=== PATIENT | male | born 1960 | race Caucasian/White ===

== ENCOUNTER 2016-08-18 09:58 | Outpatient (CLI) ==
[2012-12-16 06:25] VITALS: TEMP 96.9
[2016-02-14 09:37] VITALS: BMI 22.7
== END 2016-08-18 09:59 | disposition home or self-care (01) ==
LOC: AMBL 09:58
PROVIDERS: ATTEND Emergency Medicine
DX: S79.911A Unspecified injury of right hip, initial encounter (principal); W06.XXXA Fall from bed, initial encounter

== ENCOUNTER 2016-10-17 15:42 | Outpatient (CLI) ==
[2012-12-16 06:25] VITALS: TEMP 96.9
[2016-02-14 09:37] VITALS: BMI 22.7
[2016-10-18 05:48] LABS: BASOPHILS % (AUTO) 0.4 % (0.0-3.0); EOSINOPHILS # (AUTO) 0.2 K/ul (0.0-0.7); EOSINOPHILS % (AUTO) 2.9 % (0.0-7.0); HEMATOCRIT 39.5 % (42.0-52.0); HEMOGLOBIN 13.1 g/dl (14.0-18.0); IMMATURE GRANULOCYTE % (AUTO) 0.4 % (0.0-5.0); LYMPHOCYTES # (AUTO) 1.9 K/uL (0.60-3.4); LYMPHOCYTES % (AUTO) 26.2 (10.0-50.0); MEAN CORPUSCULAR HGB CONC 33.2 (31.8-35.4); MEAN CORPUSCULAR VOLUME 96.3 fl (80.0-94.0); MONOCYTES # (AUTO) 0.8 K/uL (0.4-2.0); MONOCYTES % (AUTO) 10.9 (0-10); NEUTROPHILS # (AUTO) 4.3 K/ul (2.0-6.9); NEUTROPHILS % (AUTO) 59.2; PLATELET COUNT 253 10^3/uL (140-440); WHITE BLOOD COUNT 7.22 K/ul (4.2-10.2)
[2016-10-18 06:07] LABS: ALBUMIN 3.9 g/dL (3.4-5.0); ALBUMIN/GLOBULIN RATIO 1.26; ANION GAP 13.8; BILIRUBIN,TOTAL 0.38 mg/dL (0.00-1.20); BUN/CREATININE RATIO 8.98; CALCIUM 9.1 mg/dL (8.2-10.2); CHOL/HDL RATIO 3.2 (4.5-6.4); CREATININE 0.89 mg/dL (0.60-1.10); POTASSIUM 3.8 mmol/L (3.5-5.1)
[2016-10-22 09:04] LABS: HIV ANTIBODIES QUALITATIVE NON REACTIVE (Nonreactive)
== END 2016-10-17 15:43 | disposition home or self-care (01) ==
LOC: LAB 15:42
PROVIDERS: ATTEND Nurse Practitioner Family
DX: S72.111A Displaced fracture of greater trochanter of right femur, initial encounter for closed fracture (principal); J44.9 Chronic obstructive pulmonary disease, unspecified; M51.36 Other intervertebral disc degeneration, lumbar region; E78.5 Hyperlipidemia, unspecified; I10 Essential (primary) hypertension; M15.9 Polyosteoarthritis, unspecified; F41.1 Generalized anxiety disorder; Z11.4 Encounter for screening for human immunodeficiency virus [HIV]; Z11.59 Encounter for screening for other viral diseases
CPT/HCPCS: 36415; 80053; 80061; 85025; 86701; 87522

== ENCOUNTER 2017-11-04 12:30 | Outpatient (CLI) | payer OTHER ==
[2012-12-16 06:25] VITALS: TEMP 96.9
[2016-02-14 09:37] VITALS: BMI 22.7
== END 2017-11-04 12:31 | disposition home or self-care (01) ==
LOC: LAB 12:30
PROVIDERS: ATTEND Emergency Medicine
DX: E78.5 Hyperlipidemia, unspecified (principal); I10 Essential (primary) hypertension; Z12.5 Encounter for screening for malignant neoplasm of prostate
CPT/HCPCS: 36415; 80053; 80061; 84443; 85025

== ENCOUNTER 2018-01-07 07:57 | Outpatient (CLI) ==
[2012-12-16 06:25] VITALS: TEMP 96.9
[2016-02-14 09:37] VITALS: BMI 22.7
--- NOTE | 2018-01-07 11:32 | US ---
EXAM: Renal ultrasound HISTORY: Cyst of kidney, acquired COMPARISON: 06/20/2014 TECHNIQUE: Renal ultrasound was performed FINDINGS: Right kidney measures 4.6 x 4.6 x 10.0 cm. Left kidney measures 5.9 x 4.4 x 10.9 cm. Bassam al cortical echogenicity is normal. No hydronephrosis or renal calculus large enough to cause acoust ic shadowing. No renal cyst or mass identified. Bladder only mildly distended and poorly evaluated IMPRESSION: Sonographically normal kidneys. The lesion demonstrated on prior CT is not visualized. Consider follow-up CT.
== END 2018-01-07 07:58 | disposition home or self-care (01) ==
LOC: RAD 07:57
PROVIDERS: ATTEND Emergency Medicine
DX: N28.1 Cyst of kidney, acquired (principal)

== ENCOUNTER 2018-03-02 15:18 | Outpatient (CLI) ==
[2012-12-16 06:25] VITALS: TEMP 96.9
[2016-02-14 09:37] VITALS: BMI 22.7
== END 2018-03-02 15:19 | disposition home or self-care (01) ==
LOC: CAR 15:18
PROVIDERS: ATTEND Family Medicine
DX: I10 Essential (primary) hypertension (principal)
CPT/HCPCS: 93005; 93010

== ENCOUNTER 2018-03-17 07:50 | Outpatient (CLI) ==
[2012-12-16 06:25] VITALS: TEMP 96.9
[2016-02-14 09:37] VITALS: BMI 22.7
--- NOTE | 2018-03-18 13:09 | ECHO2D ---
Date of Exam: 03/17/18 Ordering Physician: [facility] [[email or web address]] Room #: OP Reason for Echo: SHORT OF BREATH M-Mode Normal Adult Results LV Dimensions Normal Adult Results AoV Opening excursions >1.6 >1.6 LVEDD-base- 3.5-5.8 6.1 Ao root dimensions 2.0-3.7 3.6 LVESD-base- 3.1-4.6 L. Atrium dimensions 1.9-3.8 4.8 Post. Wall thickness 0.8-1.1 1.2 IV septum (thickness) 0.7-1.2 1.3 Post. Wall excursion 0.72-1.3 NORMAL Septal motion 0.2 Systolic motion R. Ventricular cavity 1.5-2.0 NORMAL LVEF 60% 40 TO 45% Paradoxical septal wall motion NORMAL 2-D : HYPOKINETIC SEPTUM, VALVES--NORMAL, NO EFFUSION, NO THROMBUS, ENLARGED LEFT ATRIAL AND LEFT VENTRICLE CAVITIES M-MODE: MV: NORMAL AV: NORMAL TV: NORMAL PV: CHAMBER SIZE: ENLARGED LEFT VENTRICLE AND LEFT ATRIAL CAVITIES WALL MOTION: HYPOKINETIC SEPTUM PERICARDIUM: NORMAL INTERPRETATION: 1. LEFT VENTRICULAR HYPERTROPHY 2. ENLARGED LEFT ATRIAL AND LEFT VENTRICLE CAVITIES 3. HYPOKINETIC SEPTUM LEFT VENTRICULAR EJECTION FRACTION 40 TO 45% MTDD
== END 2018-03-17 07:51 | disposition home or self-care (01) ==
LOC: CAR 07:50
PROVIDERS: ATTEND Nurse Practitioner Family
DX: R06.02 Shortness of breath (principal); I10 Essential (primary) hypertension; E78.5 Hyperlipidemia, unspecified

== ENCOUNTER 2018-10-02 14:50 | Outpatient (CLI) ==
[2012-12-16 06:25] VITALS: TEMP 96.9
[2016-02-14 09:37] VITALS: BMI 22.7
== END 2018-10-02 14:51 | disposition home or self-care (01) ==
LOC: RHC-LAB 14:50
PROVIDERS: ATTEND Nurse Practitioner Family
DX: Z00.00 Encounter for general adult medical examination without abnormal findings (principal); Z12.5 Encounter for screening for malignant neoplasm of prostate
CPT/HCPCS: 36415; 80053; 80061; 84443; 85025

== ENCOUNTER 2018-12-16 20:28 | Observation (INO) ==
--- NOTE | 2018-12-16 21:40 | CT ---
EXAM: CT scan brain without contrast HISTORY: Fall COMPARISON: CT scan brain 02/02/2016 FINDINGS: Contiguous axial images obtained from the skull base to the convexities without contrast u tilizing five mm collimation. Sagittal and coronal reconstructions were imaged and reviewed. The ve ntricles and CSF spaces are prominent compatible with age appropriate atrophy. There is periventricu lar hypodensity noted compatible with chronic microvascular disease. The visualized paranasal sinuse s and mastoid air cells are clear. The calvarium is intact.. Stable remote fractures are seen invol ving the nasal bones and left zygomatic arch. IMPRESSION: No acute intracranial findings
--- NOTE | 2018-12-16 21:44 | CT ---
EXAM: CT of the cervical spine without contrast. HISTORY: Trauma. PROCEDURE: Contiguous axial CT images of the cervical spine with coronal and sagittal reformats. FINDINGS: Comparison made with CT cervical spine of 02/02/2016. There is normal alignment of the cer vical vertebral bodies and facets. The cervical vertebral body heights are maintained. No evidence of fracture. There is multilevel disc space narrowing. There are posterior osteophytes at multiple levels of the cervical spine. There is multilevel facet arthropathy. The C1-2 relationship is maint ained. No prevertebral soft tissue abnormality. Impression: No evidence of fracture. Normal alignment of the cervical spine with degenerative changes as described.
--- NOTE | 2018-12-16 21:56 | ED.PDOC ---
General ED Provider: Dr. GORGE ALVAREZ-ER Chief Complaint: Head Laceration Stated Complaint: he fell and he is intoxicated Time Seen by Physician: 20:30 Mode of Arrival: Ambulance Information Source: Patient, EMT Exam Limitations: No limitations Primary Care Provider: AMY HAAS Nursing and Triage Documentation Reviewed and Agree: Yes Does patient meet sepsis criteria?: No System Inflammatory Response Syndrome: Not Applicable Sepsis Protocol: For patient's 13 years and over: Temp is 96.8 and below OR 101 and greater Pulse >90 BPM Resp >20/minute Acutely Altered Mental Status Are patient's symptoms suggestive of a new infection, such as: -Pneumonia -Skin, Soft Tissue -Endocarditis -UTI -Bone, Joint Infection -Implantable Device -Acute Abdominal Infection -Wound Infection -Meningitis -Blood Stream Catheter Infection -Unknown Trauma/Injury Complaint Exam - Head Injury Complaint/Exam Location of Pain: Reports: Scalp Mechanism of Injury: Reports: Trauma Onset/Duration: unknown Symptoms Are: Still present Initial Severity: Mild Current Severity: None Aggravating: Reports: None Alleviating: Reports: None Associated Signs and Symptoms: Reports: Confusion Loss of Consciousness: Unknown SDH Risk Factors: Present: None Cervical Spine Injury Risk Factors: Present: None Related Surgical History: Reports: None Head Injury Findings: Present: Normal findings Focal Weakness: Present: None Focal Sensory Loss: Present: None Gait: Abnormal Gag Reflex Present: Yes Babinski Sign: Negative Right, Negative Left Heel to Toe Normal: Yes Nexus Low Risk Criteria: No post-midline CS tender Differential Diagnoses: Trauma, Other Review of Systems - Review Of Systems Constitutional: Reports: No symptoms Eyes: Reports: No symptoms Ears, Nose, Mouth, Throat: Reports: No symptoms Respiratory: Reports: No symptoms Cardiac: Reports: No symptoms GI: Reports: No symptoms : Reports: No symptoms Musculoskeletal: Reports: No symptoms Skin: Reports: No symptoms Neurological: Reports: No symptoms Endocrine: Reports: No symptoms Hematologic/Lymphatic: Reports: No symptoms All Other Systems: Reviewed and Negative Past Medical History - Past Medical History Previously Healthy: No Endocrine: Reports: DM 2, Hypothyroid Cardiovascular: Reports: [place], Hypertension Respiratory: Reports: COPD, Asthma Hematological: Reports: Anemia Gastrointestinal: Reports: None Genitourinary: Reports: Kidney stones Neuro/Psych: Reports: Migraine Musculoskeletal: Reports: Arthritis, Back Pain, Joint Pain Cancer: Reports: None Other Pertinent Past Medical History: Alcoholism - Surgical History General Surgical History: Reports: Unknown - Family History Family History: Reports: Unknown - Social History Smoking Status: Current some day smoker Hx Substance Use: Yes (Marjuanna and has not done any in a couple weeks) Alcohol Screening: Heavy - Immunizations Tetanus Shot up to Date: Yes Physical Exam - Physical Exam Appearance: Well-appearing Pain Distress: Mild Eyes: PAVAN, EOMI, Conjunctiva clear ENT: Ears normal, Nose normal, Oropharynx normal Neck: Supple Respiratory: Airway patent, Breath sounds clear, Breath sounds equal, Respirations nonlabored Cardiovascular: RRR, Pulses normal, No rub, No murmur GI/: Soft, Nontender, No masses, Bowel sounds normal, No Organomegaly Musculoskeletal: Normal strength, ROM intact, No edema, No calf tenderness Skin: Warm, Dry, Normal color Neurological: Sensation intact, Motor intact, Reflexes intact, Cranial nerves intact, Alert, Disoriented Psychiatric: Affect appropriate, Mood appropriate Interpretation - Radiology Interpretation Radiology Interpretation By: Radiologist Radiology Results: Negative Exam Interpreted: CT Scan Critical Care Note - Critical Care Note Total Time (mins): 0 Course - Course Hematology/Chemistry: 12/16/18 21:01 12/16/18 21:01 Orders, Labs, Meds: Lab Review 12/16/18 12/16/18 21:01 21:01 WBC 10.84 H RBC 4.17 L Hgb 13.5 L Hct 39.7 L MCV 95.2 H MCH 32.4 H MCHC 34.0 RDW Coeff of Florinda 12.3 Plt Count 316 Immature Gran % (Auto) 0.3 Neut % (Auto) 71.1 Lymph % (Auto) 21.9 Kern % (Auto) 5.4 Eos % (Auto) 0.8 Baso % (Auto) 0.5 Immature Gran # (Auto) 0.0 Neut # (Auto) 7.7 H Lymph # (Auto) 2.4 Kern # (Auto) 0.6 Eos # (Auto) 0.1 Baso # (Auto) 0.1 Sodium 144.9 Potassium 3.36 L Chloride 105.0 Carbon Dioxide 25.5 Anion Gap 17.76 BUN 3.6 L Creatinine 0.77 Estimated GFR (MDRD) 104.00 BUN/Creatinine Ratio 4.67 Glucose 127.1 H Calcium 8.69 Total Bilirubin 0.24 AST 29.0 ALT 19.9 Alkaline Phosphatase 59.1 Total Protein 7.47 Albumin 4.47 Globulin 3.00 Albumin/Globulin Ratio 1.49 Plasma/Serum Alcohol 358.5 H Orders Category Date Time Status CBC W/ AUTO DIFF Stat LAB 12/16/18 21:01 Completed COMPREHENSIVE METABOLIC PANEL Stat LAB 12/16/18 21:01 Completed ETOH LEVEL [BLOOD ALCOHOL] Stat LAB 12/16/18 21:[address] CERVICAL SPINE W/O CONTRAST Stat RADS 12/16/18 20:[address] HEAD W/O CONTRAST Stat RADS 12/16/18 20:31 Completed Vital Signs: Temp Pulse Resp BP Pulse Ox 12/16/18 20:29 97.7 F 88 12 128/81 91 L Departure - Departure Time of Disposition: 21:56 Disposition: PLACED OBSERVATION Discharge Problem: Alcohol intoxication Instructions: Alcohol Intoxication (ED) Condition: Fair Pt referred to PMD for follow-up: Yes IPMP verified?: No Allergies/Adverse Reactions: Allergies No Known Drug Allergies Adverse Reaction (Verified 02/14/16 09:41) Home Medications: Ambulatory Orders Vitamin B-1 [Thiamine] 100 mg PO DAILY #30 tablet 10/27/15 Hydrocodone/Acetaminophen [Hydrocodon-Acetaminophen 5-325] 1 each PO Q4H PRN 05/01 Levothyroxine Sodium [Synthroid] 50 mcg PO QDAC #30 tablet 12/27/15 Losartan Potassium [Cozaar] 50 mg PO DAILY #30 tablet 12/27/15 Multivitamin [Men's Multi-Vitamin] 1 each PO DAILY 11/05/17 Disposition Discussed With: Patient
[2018-12-16] MEDS ORDERED: NON-FORMULARY MEDICATION (Fenofibrate Nanocrystallized [Fenofibrate] 145 MG) PO SCH (22:00)
[2018-12-16] MEDS ORDERED: THIAMINE IM STA (22:01)
[2018-12-16 22:32] VITALS: BMI 28.7
[2018-12-17 05:09] VITALS: BP 148/82; TEMP 98
[2018-12-17] MEDS ORDERED: SYNTHROID ONE (05:39)
[2018-12-17] MEDS ORDERED: SYNTHROID PO SCH ×2 (06:30→09:00)
[2018-12-17] MEDS ORDERED: BETAPACE PO SCH (09:00)
[2018-12-17] MEDS ORDERED: SALMETEROL IH SCH (09:00)
[2018-12-17] MEDS ORDERED: NON-FORMULARY MEDICATION (Simvastatin [Simvastatin] 20 MG) PO SCH (09:00)
[2018-12-17] MEDS ORDERED: TRIGLIDE PO SCH (09:00)
[2018-12-17] MEDS ORDERED: FLOMAX PO SCH (09:00)
[2018-12-17] MEDS ORDERED: NON-FORMULARY MEDICATION (Losartan Potassium [Cozaar] 50 MG) PO SCH (09:00)
[2018-12-17] MEDS ORDERED: FLUTICASONE IH SCH (09:00)
[2018-12-17] MEDS ORDERED: COZAAR PO SCH (09:00)
[2018-12-17] MEDS ORDERED: ZOCOR PO SCH (17:00)
--- NOTE | 2018-12-31 11:04 | SSS ---
DISCUSSION: 58 year old gentleman that was seen in the emergency department on 12/16/18 after sustaining of head injury. He had been drinking and fell at home sustaining a very small laceration to the scalp. He was brought in by EMS as he was unable to ambulate and in the emergency department he was found to have a blood alcohol of 358. He had a significant change in his mental status. A CT of the head and cervical spine were unremarkable and the patient was admitted to my services as Hospitalist for observation. MEDICATIONS: Thiamine Hydrocodone Synthroid Cozaar ALLERGIES: No drug allergies PAST MEDICAL HISTORY: History of hypertension Hypothyroidism He does have history of COPD Remote history of coronary artery disease Kidney stones History of Degenerative joint disease Migraine headaches. SURGICAL HISTORY: Unremarkable SOCIAL HISTORY: He is a one pack per day smoker. Does use Marijuana socially and is a heavy drinker. FAMILY HISTORY: Reviewed and thought not to be pertinent to discussion. REVIEW OF SYSTEMS: No headaches, visual changes, tinnitus, hemoptysis, abdominal pain, blood in the stool, urinary symptoms or seizures. PHYSICAL EXAMINATION: VITAL SIGNS: Temperature 96, pulse 74,respirations 18 and blood [id number]. HEENT: Pupils are round. NECK: Supple. CHEST: Clear. CARDIOVASCULAR: Regular rate and rhythm. ABDOMEN: Soft, nontender. EXTREMITIES: Distal extremities without cyanosis or edema. CLINICAL COURSE: The head laceration was minor and did not requiring any suturing. He was observed over night and the following morning his blood alcohol was noted to be 177.9. He was alert and oriented at this time. [facility] was [facility]. [facility]
== END 2018-12-17 09:34 | disposition home or self-care (01) ==
LOC: ED 20:28 → MEDSURG B 22:07
PROVIDERS: ADMIT Family Medicine; ATTEND Family Medicine
DX: F10.129 Alcohol abuse with intoxication, unspecified; R41.0 Disorientation, unspecified

== ENCOUNTER 2019-02-08 15:37 | Outpatient (CLI) ==
[2012-12-16 06:25] VITALS: TEMP 96.9
== END 2019-02-08 15:38 | disposition home or self-care (01) ==
LOC: RHC-LAB 15:37
PROVIDERS: ATTEND Nurse Practitioner Family
DX: E78.5 Hyperlipidemia, unspecified (principal)
CPT/HCPCS: 36415; 80053; 80061